=== PATIENT | female | born 1935 | race Native Hawaiian/Other Pacific Islander ===

== ENCOUNTER 2016-11-26 08:45 | Outpatient (CLI) | payer OTHER | END 2016-11-26 19:22 | disposition home or self-care (01) | LOC: LABW 08:45 | DX: I48.0 Paroxysmal atrial fibrillation (principal) | CPT/HCPCS: 36415; 85610 ==

== ENCOUNTER 2016-12-26 10:20 | Outpatient (CLI) | payer OTHER | END 2016-12-26 19:31 | disposition home or self-care (01) | LOC: LABW 10:20 | DX: I48.0 Paroxysmal atrial fibrillation (principal) | CPT/HCPCS: 36415; 85610 ==

== ENCOUNTER 2017-01-02 09:38 | Outpatient (CLI) | payer OTHER | END 2017-01-02 19:20 | disposition home or self-care (01) | LOC: LABW 09:38 | DX: I48.0 Paroxysmal atrial fibrillation (principal) | CPT/HCPCS: 36415; 85610 ==

== ENCOUNTER 2017-01-10 11:45 | Outpatient (CLI) | payer OTHER | END 2017-01-10 19:18 | disposition home or self-care (01) | LOC: LABW 11:45 | DX: I48.0 Paroxysmal atrial fibrillation (principal) | CPT/HCPCS: 36415; 85610 ==

== ENCOUNTER 2017-01-29 13:13 | Outpatient (CLI) | payer OTHER | END 2017-01-29 19:10 | disposition home or self-care (01) | LOC: LABW 13:13 | DX: I48.0 Paroxysmal atrial fibrillation (principal) | CPT/HCPCS: 36415; 85610 ==

== ENCOUNTER 2017-03-08 11:16 | Outpatient (CLI) | payer OTHER | END 2017-03-08 19:14 | disposition home or self-care (01) | LOC: LABW 11:16 | DX: I48.0 Paroxysmal atrial fibrillation (principal); Z51.81 Encounter for therapeutic drug level monitoring | CPT/HCPCS: 36415; 85610 ==

== ENCOUNTER 2017-03-28 11:40 | Outpatient (CLI) | payer OTHER | END 2017-03-28 19:32 | disposition home or self-care (01) | LOC: LABW 11:40 | DX: I48.0 Paroxysmal atrial fibrillation (principal) | CPT/HCPCS: 36415; 85610 ==

== ENCOUNTER 2017-04-28 13:47 | Outpatient (CLI) | payer OTHER | END 2017-04-28 20:28 | disposition home or self-care (01) | LOC: LABW 13:47 | DX: I48.0 Paroxysmal atrial fibrillation (principal) | CPT/HCPCS: 36415; 85610 ==

== ENCOUNTER 2017-05-28 13:31 | Outpatient (CLI) | payer OTHER | END 2017-05-28 14:35 | disposition home or self-care (01) | LOC: LABW 13:31 | DX: I48.0 Paroxysmal atrial fibrillation (principal) | CPT/HCPCS: 36415; 85610 ==

== ENCOUNTER 2017-06-28 11:40 | Outpatient (CLI) | payer OTHER | END 2017-06-28 19:24 | disposition home or self-care (01) | LOC: LABW 11:40 | DX: I48.0 Paroxysmal atrial fibrillation (principal) | CPT/HCPCS: 36415; 85610 ==

== ENCOUNTER 2017-07-28 14:06 | Outpatient (CLI) | payer OTHER | END 2017-07-28 15:10 | disposition home or self-care (01) | LOC: LABW 14:06 | DX: I48.0 Paroxysmal atrial fibrillation (principal) | CPT/HCPCS: 36415; 85610 ==

== ENCOUNTER 2017-09-17 09:33 | Outpatient (CLI) | payer OTHER ==
[2017-09-17 10:51] LABS: POTASSIUM 4.3 mmol/L (3.6-5.2)
[2017-09-17 10:54] LABS: PLATELET COUNT 187 K/uL (152-353)
== END 2017-09-17 20:05 | disposition home or self-care (01) ==
LOC: LAB 09:33
PROVIDERS: Internal Medicine Pulmonary Disease
DX: I10 Essential (primary) hypertension (principal); J84.10 Pulmonary fibrosis, unspecified; I27.0 Primary pulmonary hypertension; D86.89 Sarcoidosis of other sites; M34.89 Other systemic sclerosis
CPT/HCPCS: 80053; 84443; 85027